=== PATIENT | female | born 1955 | race Caucasian/White ===

== ENCOUNTER 2018-10-20 06:46 | Inpatient (IN) | payer BC, OTHER ==
[2018-10-07 09:05] LABS: URINE BILIRUBIN NEGATIVE (Negative); URINE BLOOD NEGATIVE (Negative); URINE CLARITY CLEAR; URINE COLOR YELLOW; URINE GLUCOSE-RANDOM NEGATIVE (Negative); URINE KETONES NEGATIVE (Negative); URINE LEUKOCYTES-REFLEX NEGATIVE (Negative); URINE NITRITE-REFLEX NEGATIVE (Negative); URINE PROTEIN NEGATIVE (Negative); URINE UROBILINOGEN 0.2 E.U./dl (0.2-1.0)
[2018-10-07 09:08] LABS: HEMATOCRIT 41.3 % (37.0-47.0); MCH 30.9 pg (26.0-34.0); MCHC 33.9 g/dL (28.0-37.0); MCV 91.4 fL (80.0-100.0); MPV 8.8 fl. (7.2-11.1); RBC 4.52 mil/uL (4.20-5.00); RDW-CV 13.5 % (10.5-14.5); WBC 7.3 thou/uL (4.0-11.0)
[2018-10-07 09:16] LABS: ALBUMIN 3.7 g/dL (3.4-5.0); CALCIUM 9.2 mg/dL (8.5-10.1); CREATININE 0.5 mg/dL (0.6-1.3); POTASSIUM 3.5 mmol/L (3.5-5.1); TOTAL BILIRUBIN 0.4 mg/dL (<0.1-1.0); TOTAL PROTEIN 7.4 g/dL (6.4-8.2)
[2018-10-07 09:36] LABS: PROTIME 10.2 Seconds (9.20-11.50)
--- NOTE | 2018-10-07 15:48 | EKG ---
[place] [address] ELECTROCARDIOGRAM REPORT Name: ANA TAYLOR Room: PRE IN [facility].#: [id number] Admission: Attend Phys: Tianna Otero Discharge: Date of : 55 Report #: [id number] THIS REPORT FOR: //name// [facility] Test Date: 2018-10-07 Test Time: 09:17:58 Pat Name: ANA TAYLOR Department: Room: Gender: F Timing Adjuster: : 1955 Requested By: Carlos Barber Order Number: [id number] Reading MD: Michael Armstrong Measurements Intervals [place] Rate: 73 P: 23 CA: 145 QRS: -1 QRSD: 112 T: 29 QT: 406 QTc: 448 Interpretive Statements Sinus rhythm No previous ECG available for comparison Electronically Signed On 10-07-2018 15:48:35 TIRE INSPECTOR by Michael Armstrong [email or web address] <ELECTRONICALLY SIGNED> By: Michael Armstrong MD, [facility] 10/07/18 1548 0917 [id number] Michael Armstrong MD, FACC /EPI
[~2018-10-20] VITALS: Ht 160 cm; Wt 111.1 kg
[~2018-10-20 06:46] MED LIST: ATORVASTATIN CA40 MG PO; CLARINEX5 MG PO; LOPRESSOR50 PO; LOSARTAN-HCTZ1 EAC1 PO; NORVASC5 MG PO; PREVACID30 MG PO
[2018-10-20 07:27] VITALS: BP 156/75
[2018-10-20 12:18] VITALS: BP 138/58
[2018-10-20 16:40] VITALS: BP 116/61
--- NOTE | 2018-10-20 19:06 | NUR ---
ASSUMED CARE OF PATIENT AFTER TRANSFER FROM PACU AT 1215. ALERT AND OREINTED X4. ASSESSMENT COMPLETED AND CHARTED. NO COMPLAINTS OF SOA, CAPNO IN PLACE. PATIENT HAD SOME NAUSEA UPON ARRIVAL, GAVE ZOFRAN AND GAINED RELIEF, NO OTHER NAUSEA INTERVENTION NEEDED. PAIN HAS BEEN MANAGED WITH ORAL MEDICATION. FLUIDS AND ANTIBIOTICS INFUSED ORDERED. PATIENT UP WITH THERAPY TO BEDSIDE COMMODE AND DID VERY WELL. POLAR PACK IN PLACE. HOURLY ROUNDS MAINTAINED, CALL LIGHT IN REACH, FALL PRECAUTIONS IN PLACE AND PATIENT EDUCATED ON FAL PREVENTION, USES CALL LIGTH APPROPRIATELY. NURSING WILL CONTINUE TO MONITOR.
[2018-10-20 20:30] VITALS: BP 109/50
[2018-10-21] VITALS: BP 114/55
[2018-10-21 03:41] LABS: HEMATOCRIT 32.5 % (37.0-47.0); HEMOGLOBIN 10.8 gm/dL (12.0-15.0)
[2018-10-21 04:00] VITALS: BP 134/64
--- NOTE | 2018-10-21 06:41 | NUR ---
PATIENT HAS SLEPT WELL THROUGHOUT THE NIGHT. VSS ON 3L 02 VIA NASAL CANNULA. PAIN WELL CONTROLLED AND MEDICATIONS GIVEN ORDERED AND CHARTED. DRESSING TO RIGHT KNEE IS C/D/I, AND HOWARD BREWER, SCD'S AND POLAR CARE IN PLACE. HEMOVAC TO RIGHT KNEE IS IN PLACE WITH MODERATE AMOUNT OF SEROSANGUINEOUS DRAINAGE. PATIENT IS UP WITH ASSIST X 1 WITH GAITBELT AND WALKER TO [facility] [place]. IV IN RIGHT HAND-SL. IV IN LEFT FOREARM-SL. IV ABT GIVEN WITHOUT ANY ADVERSE SIDE EFFECTS. PATIENT INSTRUCTED TO USE CALL LIGHT WHEN NEEDING ASSISTANCE. HOURLY ROUNDS MADE. WILL CONTINUE WITH PLAN OF CARE AND NURSING TO MONITOR.
[2018-10-21 08:30] VITALS: BP 138/55
[2018-10-21 14:39] VITALS: BP 138/55
--- NOTE | 2018-10-21 15:34 | NUR ---
PT.IN BED AFTER SECOND THERAPY SESSION. SHE SAID SHE WAS TIRED! SHE LIVES IN A HOUSE WITH HER ROOMATE,JAYLAN. SHE CAN ASSIST HER AT DISCHARGE IF NEEDED. JAYLAN RECENTLY HAD ROTATOR CUFF SURGERY-5 WEEKS AGO. SHE CAN DRIVE NOW. PT.WAS INDEPENDENT PRIOR TO SURGERY. HAS A WALKER,BATH BENCH AND HIGH TOILETS AT HOME. CM HAD CALLED IN PRESCRIPTION FOR XARELTO WRITTEN, [facility] AND [facility]. COPAY IS $39. INFORMED PT. SHE MADE A FACE. GAVE HER COUPON TO GET MED WITH $0 COPAY. TOLD HER CARD NEEDS TO BE ACTIVATED. SHE HOPES TO GO HOME TOMORROW. DISCUSSED POLAR MIKEY AND CPM. FAXED REFERRAL INFORMATION TO [facility] [phone].
[2018-10-21 17:04] VITALS: BP 97/44
--- NOTE | 2018-10-21 17:31 | NUR ---
ASSUMED CARE OF PATIENT AFTER REPORT AT [facility]OX 0720. ALERT AND ORIENTED X4. ASSESSMENT COMPLETED AND CHARTED. VSS ON ROOM AIR. NO COMPLAINTS OF NAUSEA, OR SOA. PAIN HAS BEEN MANAGED WITH ORAL MEDICATION. WORKED VERY WELL WITH THERAPIES TODAY. CPM USED ORDERED. ANTIBIOTICS INFUSED ORDERED, SALINE LOCKED AFTER INFUSION. POLAR CARE IN PLACE. HEMAVAC REMOVED WITH AM ASSESSMENT BEFORE MORNING THERAPY. HOURLY ROUNDS COMPLETED, FALL PRECAUTIONS IN PLACE, USES CALL LIGHT APPROPRIATELY. CALL LIGHT IN REACH, NURSING WILL CONTINUE TO MONITOR.
[2018-10-21 20:45] VITALS: BP 146/64
[2018-10-22 05:07] LABS: HEMATOCRIT 32.5 % (37.0-47.0); HEMOGLOBIN 10.8 gm/dL (12.0-15.0)
--- NOTE | 2018-10-22 06:46 | NUR ---
PATIENT HAS SLEPT WELL THROUGHOUT THE NIGHT. VSS ON RA. PAIN WELL CONTROLLED WITH ORAL PAIN MEDICATIONS ORDERED AND CHARTED. DRESSING TO RIGHT KNEE IS C/D/I, SCD'S AND POLAR CARE IN PLACE. PATIENT TOLERATING CPM WELL. PATIENT IS UP WITH ASSIST X 1 WITH [place]IT[place] [facility] [place] IN RIGHT HAND-SL. IV IN LEFT FOREARM-SL. PATIENT INSTRUCTED TO USE CALL LIGHT WHEN NEEDING ASSISTANCE. HOURLY ROUNDS MADE. WILL CONTINUE WITH PLAN OF CARE AND NURSING TO MONITOR.
[2018-10-22 09:52] VITALS: BP 121/60
[2018-10-22] MEDS ORDERED: XARELTO10 MG PO (11:25)
[2018-10-22] MEDS ORDERED: PERCOCET PO (11:27)
--- NOTE | 2018-10-22 12:11 | NUR ---
PT. IS READY FOR DISCHARGE TODAY. SHE SAID SHE HAS AN APPT. WITH OUTPT THERAPY ON Oct.27. SHE WOULD LIKE HOME HEALTH OVER THE WEEKEND IF POSSIBLE. BIANKA SPOKE WITH [facility]. SHE SAID YES THEY COULD SEE PT.UNITL OUTPT.STARTS OR LONGER IF PT.DESIRES. FAXED DISCHARGE ORDERS TO [facility]. PT.[facility] WILL SEE HER OVER THE WEEKEND AND WILL CALL HER TO SET UP APPT.
--- NOTE | 2018-10-22 13:31 | NUR ---
ASSUMED CARE OF PATIENT AFTER REPORT. ALERT AND OREINTED X4. ASSESSMENT COMPLETED AND CHARTED. VSS ON ROOM AIR. NO COMPLAINTS OF NAUSEA OR SOA. PAIN HAS BEEN MANAGED WITH ORAL MEDICATION. PATIENT WORKED VERY WELL WITH THERAPIES THIS MORNING. FALL PRECAUTIONS REMAINED IN PLACE, HOURLY ROUNDS MADE. PATIENT DISCHARGED AT 1315 WITH ALL PERSONAL BELONGINGS, PRESCRIPTIONS AND DISCHARGE INFORMATION.
== END 2018-10-22 13:15 | disposition home health service (06) | DRG 554 ==
LOC: EDSTATUS 06:46 → M.SUR 06:46 → M.PRE 06:47 → M.TBA 06:48 → M.PRE 09:24 → M.ORTHSURG 12:10 → M.PRE 13:43 → M.ORTHSURG 10-22 13:15
PROVIDERS: Orthopaedic Surgery; ADMIT Internal Medicine
DX: M17.11 Unilateral primary osteoarthritis, right knee (principal); I10 Essential (primary) hypertension; I48.91 Unspecified atrial fibrillation; K21.9 Gastro-esophageal reflux disease without esophagitis; K58.9 Irritable bowel syndrome, unspecified; Z86.010 Personal history of colon polyps; Z90.710 Acquired absence of both cervix and uterus; Z79.899 Other long term (current) drug therapy; Z90.49 Acquired absence of other specified parts of digestive tract